=== PATIENT | female | born 1995 | race African-American/Black ===

== ENCOUNTER 2023-10-02 11:16 | Emergency (ER) | payer OTHER, SELFPAY ==
--- NOTE | 2023-10-02 12:18 | RAD REPORT ---
EXAM DESCRIPTION: RAD - Chest Single View - 10/02/2023 12:10 pm CLINICAL HISTORY: COUGH Chest pain. COMPARISON: Chest Single View dated 10/26/2022; Chest Single View dated 10/01/2022; CHEST SINGLE VIEW dated 11/02/2008 FINDINGS: Portable technique limits examination quality. The lungs are grossly clear. The heart is normal in size. No displaced fractures. IMPRESSION: No acute intrathoracic process suspected.
--- NOTE | 2023-10-02 12:22 | EDPHYS ---
Physician Documentation [facility] Name: Maryam Tee Age: 28 yrs Sex: Female : 1995 Arrival Date: 10/02/2023 Time: 11:16 Bed 11 Private MD: YUE NÚÑEZ ED Physician Noé Lay HPI: 10/01 14:07 This 28 yrs old Black Female presents to ER via Ambulatory with complaints of Shortness rt Of Breath, Cough. 14:07 Patient with history of asthma, presents to the ED with shortness of breath, cough, rt reported wheezing. She states that she is concerned that she has a pneumonia. She denies fever, chest pain, other complaints, symptoms are mild in severity, no other aggravating or alleviating factors.. 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 - Social history:: Smoking status: Patient denies any tobacco usage or history of. - Family history:: not pertinent. ROS: 14:07 Constitutional: Negative for fever, chills, and weight loss, Cardiovascular: Negative rt for chest pain, palpitations, and edema, Abdomen/GI: Negative for abdominal pain, nausea, vomiting, diarrhea, and constipation, Skin: Negative for injury, rash, and discoloration, Neuro: Negative for headache, weakness, numbness, tingling, and seizure, Psych: Negative for depression, anxiety, suicide ideation, homicidal ideation, and hallucinations, 14:07 Respiratory: Positive for cough, shortness of breath, Exam: 14:07 Constitutional: This is a well developed, well nourished patient who is awake, alert, rt and in no acute distress. Head/Face: Normocephalic, atraumatic. Chest/axilla: Normal chest wall appearance and motion. Nontender with no deformity. No lesions are appreciated. Cardiovascular: Regular rate and rhythm with a normal S1 and S2. No gallops, murmurs, or rubs. Normal PMI, no JVD. No pulse deficits. Respiratory: Lungs have equal breath sounds bilaterally, clear to auscultation and percussion. No rales, rhonchi or wheezes noted. No increased work of breathing, no retractions or nasal flaring. Abdomen/GI: Soft, non-tender, with normal bowel sounds. No distension or tympany. No guarding or rebound. No evidence of tenderness throughout. Skin: Warm, dry with normal turgor. Normal color with no rashes, no lesions, and no evidence of cellulitis. MS/ Extremity: Pulses equal, no cyanosis. Neurovascular intact. Full, normal range of motion. Neuro: Awake and alert, GCS 15, oriented to person, place, time, and situation. Cranial nerves II-XII grossly intact. Motor strength 5/5 in all extremities. Sensory grossly intact. Cerebellar exam normal. Normal gait. Vital Signs: 11:21 BP 125 / 80; Pulse 82; Resp 16; Temp 98.1; Pulse Ox 100% ; ko1 MDM: 11:51 Patient medically screened. rt 14:07 Differential diagnosis: Pneumonia, asthma. Data reviewed: vital signs, nurses notes, rt radiologic studies. I considered the following discharge prescriptions or medication management in the emergency department Medications were administered in the Emergency Department. See MAR. Independent interpretation of the following test(s) in the Emergency Department X-Ray: My interpretation is No consolidation seen on interpretation of x-ray images. Test considered but Not performed: CT: Low suspicion for pulmonary embolism, PE RC negative, does not require CT angiogram to rule out pulmonary embolism.. 10/01 11:57 Order name: Chest Single View XRAY; Complete Time: 12:19 rt Administered Medications: 12:21 CANCELLED (Patient Refused): [id number] mg PO once rt 12:21 CANCELLED (Patient Refused): albuterol2.5 mg Inhalation once rt Disposition Summary: 10/02/23 12:21 Discharge Ordered Notes: Location: Home rt Problem: an acute exacerbation rt Symptoms: have improved rt Condition: Stable rt Diagnosis - Unspecified asthma, uncomplicated rt Followup: rt - With: Private Physician - When: 2 - 3 days - Reason: Discharge Instructions: - Discharge Summary Sheet rt Forms: - Work release form iw - Medication Reconciliation Form rt - Thank You Letter rt - Antibiotic Education rt - Prescription Opioid Use rt - Patient Portal Instructions rt - Leadership Thank You Letter rt Prescriptions: - Albuterol Sulfate 2.5 mg /3 mL (0.083 %) Inhalation Solution for Nebulization - inhale 1 unit NEBULIZATION route every 8 hours As needed; 30 unit; Refills: 0, rt Product Selection Permitted - Prednisone 20 mg Oral Tablet - take 2 tablets ORAL route once daily for 5 days; 10 tablet; Refills: 0, Product rt Selection Permitted Signatures: Dispatcher [employer] Citlalli Jensen RN RN ko1 Noé Lay MD MD rt Corrections: (The following items were deleted from the chart) 12:21 11:57 predniSONE PO 40 mg PO once ordered. rt rt 12:21 11:57 Albuterol Inhalation 2.5 mg Inhalation once ordered. rt rt
--- NOTE | 2023-10-02 12:22 | ER ---
Nurse's Notes [facility] Name: Maryam Tee Age: 28 yrs Sex: Female : 1995 Arrival Date: 10/02/2023 Time: 11:16 Bed 11 Private MD: YUE NÚÑEZ Diagnosis: Unspecified asthma, uncomplicated Presentation: 10/01 11:21 Chief complaint: Patient states: cough x 3 days and shortness of breath, has a hx of ko1 asthma, used nebulizer last night and it helped a little but has had pneumonia in the past and wants to get checked. Coronavirus screen: At this time, the client does not indicate any symptoms associated with coronavirus-19. Ebola Screen: No symptoms or risks identified at this time. Initial Sepsis Screen: Does the patient meet any 2 criteria? No. Patient's initial sepsis screen is negative. Does the patient have a suspected source of infection? No. Patient's initial sepsis screen is negative. Risk Assessment: Do you want to hurt yourself or someone else? Patient reports no desire to harm self or others. Onset of symptoms is unknown. 11:21 Method Of Arrival: Ambulatory ko1 11:21 Acuity: ANGEL 4 ko1 Triage Assessment: 11:26 General: Appears in no apparent distress. Behavior is calm, cooperative, appropriate ko1 for age. Pain: Denies pain. Respiratory: Reports shortness of breath cough that is Onset: The symptoms/episode began/occurred gradually, the patient has mild shortness of breath. 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 - Social history:: Smoking status: Patient denies any tobacco usage or history of. - Family history:: not pertinent. Vital Signs: 11:21 BP 125 / 80; Pulse 82; Resp 16; Temp 98.1; Pulse Ox 100% ; ko1 ED Course: 11:20 Patient arrived in ED. rg4 11:20 YUE NÚÑEZ is Private Physician. rg4 11:23 Noé Lay MD is Attending Physician. rt 11:26 Triage completed. ko1 11:26 Arm band placed on right wrist. Patient placed in waiting room, on a stretcher, on ko1 pulse oximetry, Patient notified of wait time. 12:12 Chest Single View XRAY In Process Unspecified. EDMS 12:27 Tiki David, RN is Primary Nurse. iw Administered Medications: 12:21 CANCELLED (Patient Refused): [id number] mg PO once rt 12:21 CANCELLED (Patient Refused): albuterol2.5 mg Inhalation once rt Outcome: 12:21 Discharge ordered by . rt 12:53 Patient left the ED. iw Signatures: Dispatcher [employer] EDMS Tiki David, RN RN iw Mary Ann Hutchison rg4 Citlalli Platt RN RN ko1 Noé Lay MD MD rt
[2023-10-02 13:18] VITALS: BP 125/80; TEMP 98.1; O2SAT 100
== END 2023-10-02 12:53 | disposition home or self-care (01) ==
LOC: ER 11:16
DX: J45.909 Unspecified asthma, uncomplicated (principal); R05.9 Cough, unspecified
CPT/HCPCS: 71045; 99282